=== PATIENT | female | born 1980 | race Hispanic/Latino ===

== ENCOUNTER 2022-05-03 03:12 | Inpatient (IN) | payer SELFPAY ==
[2022-05-03] MEDS: Acetaminophen 500 MG TAB PO SCH ×2 (06:01→11:31)
[2022-05-03] MEDS ORDERED: Ondansetron PF 4 MG/2 ML Vial IVP PRN (06:04)
[2022-05-03] MEDS ORDERED: Promethazine HCl 25 MG/ML VIAL IM PRN (06:04)
[2022-05-03] MEDS ORDERED: Morphine 2 MG/ML VIAL SLOW IVP PRN ×2 (06:04→06:07)
[2022-05-03] MEDS ORDERED: traMADol HCl 50 MG TAB PO PRN (06:07)
[2022-05-03] MEDS ORDERED: Cyclobenzaprine 10 MG TAB PO PRN (06:07)
[2022-05-03] MEDS ORDERED: Sodium Chloride 0.9% 1,000 ML IV SCH (06:15)
[2022-05-03] MEDS ORDERED: Dextrose 5% in Water 1,000 ML IV PRN (06:27)
[2022-05-03] MEDS ORDERED: Dextrose 50% Abboject 50 ML SYRINGE SLOW IVP PRN (06:27)
[2022-05-03] MEDS ORDERED: HumaLOG 300 UNITS/3 ML VIAL SC PRN (06:27)
[2022-05-03] MEDS ORDERED: TETANUS, DIPHTHERIA TOX,ADULT (TDVAX) 0.5 ML VIAL IM ONE (06:30)
[2022-05-03 06:48] VITALS: BMI 28.2
[2022-05-03] MEDS ORDERED: Polyethylene Glycol 3350 17 GM Packet PO SCH (09:00)
[2022-05-03] MEDS ORDERED: Famotidine 20 MG TAB PO SCH (09:00)
[2022-05-03] MEDS ORDERED: Senokot S 8.6-50 MG TAB PO SCH (09:00)
[2022-05-03] MEDS ORDERED: Morphine 4 MG/ML VIAL SLOW IVP PRN (09:09)
[2022-05-03 11:49] LABS: Bilirubin Negative (Negative); Blood, Urine Negative (Negative); Clarity Turbid (Clear); Glucose, Urine (Dipstick) Normal (Negative); Ketone, Urine Negative (Negative); Leukocyte 500 Leu/uL (Negative); Nitrite Negative (Negative); Protein, Urine (Dipstick) Negative (Neg-Trace); RBC/HPF 0-3 HPF (0-3); Squamous Epithelial 0-3 HPF (0-3); Urobilinogen Normal mg/dL (Less than 2); WBC/HPF 21-50 HPF (0-3); pH, Urine 5.5 (5.0-9.0)
[2022-05-03 11:58] LABS: Bacteria/HPF 1+ HPF (None Seen)
[2022-05-03 11:59] LABS: Urine Culture Reflex Yes Yes
[2022-05-03] MEDS ORDERED: traMADol HCl 50 MG TAB PO SCH (12:00)
[2022-05-03 12:45] VITALS: TEMP 97.1
[2022-05-03] MEDS ORDERED: Ibuprofen 200 MG TAB PO SCH (14:00)
[2022-05-03 17:14] VITALS: BP 149/84
== END 2022-05-03 19:35 | disposition home or self-care (01) | DRG 563 ==
LOC: SJJU 05:31
PROVIDERS: ADMIT Surgery; ATTEND Surgery
DX: S82.142A Displaced bicondylar fracture of left tibia, initial encounter for closed fracture (principal); W11.XXXA Fall on and from ladder, initial encounter; F17.210 Nicotine dependence, cigarettes, uncomplicated
CPT/HCPCS: 81001; 87077; 87086; 87186; J7050